=== PATIENT | female | born 1990 | race Caucasian/White ===

== ENCOUNTER 2020-03-10 16:27 | Outpatient (CLI) | payer OTHER, SELFPAY ==
[2020-03-10 17:50] LABS: HIV 1/2 Ab P24 Ag Result Negative (Negative)
[2020-03-10 17:53] LABS: Vitamin D 25 Hydroxy 62.9 ng/mL
[2020-03-10 18:06] LABS: Thyroid Stimulating Hormone Reflex 0.078 uIU/mL (0.465-4.68)
[2020-03-10 19:08] LABS: Free T4 Free Thyroxine Reflex 1.06 ng/dL (0.78-2.19)
[2020-03-10 20:19] LABS: Total Triiodothyronine (T3) 1.09 NG/ML (0.97-1.69)
== END 2020-03-10 16:28 | disposition home or self-care (01) ==
PROVIDERS: PCP Student in an Organized Health Care Education/Training Program; Visit Provider Student in an Organized Health Care Education/Training Program
DX: Z11.4 Encounter for screening for human immunodeficiency virus [HIV] (principal); Z13.29 Encounter for screening for other suspected endocrine disorder; Z13.228 Encounter for screening for other metabolic disorders
CPT/HCPCS: 36415; 82306; 84439; 84443; 84480; 86703; G0432

== ENCOUNTER → 2020-06-30 10:46 | Outpatient (CLI) | payer OTHER, SELFPAY ==
--- NOTE | ~2020-06-30 | MR_ITS ---
EXAMINATION: MR abdomen wo/w con DATE: 06/30/2020 11:54 INDICATION: Pancreatic cyst. TECHNIQUE: Magnetic resonance imaging (MRI) of the abdomen was performed without and with 18 mL Multi Jorge Luis intravenous contrast. Sequences included coronal T2-weighted FS FSE, coronal and axial FS FIEST A, axial T2-weighted FSE, coronal LAVA-flex, axial STIR FSE, axial DWI, axial dual-echo T1-weighted F SPGR, and axial LAVA. Postcontrast sequences included coronal LAVA-flex and a time course of axial LA VA. COMPARISON: CT 06/02/2019 FINDINGS: The liver, gallbladder, spleen, adrenal glands, and kidneys are normal. There is a 10 mm cyst in the pancreas at the junction of the body and tail. There is no visible connection to the main pancreatic duct. There are no dilated loops of bowel. There are no pathologically enlarged lymph nodes. There is no free intraperitoneal fluid. IMPRESSION: 1. Stable 10 mm cystic lesion of the pancreas. The differential diagnosis includes pseudocyst, intrad uctal papillary mucinous neoplasm (IPMN), mucinous cystic neoplasm (MCN), serous cystadenoma, and krystle roendocrine tumor. Abdomen MRI without and with contrast recommended in one year. 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 Stable 10 mm cystic lesion of the pancreas. The differential diagnosis inclu kalli pseudocyst, intraductal papillary mucinous neoplasm (IPMN), mucinous cystic neoplasm (MCN), serous cystadenoma, and neuroendocrine tumor. Abdomen MRI with out and with contrast recommended in one year.
[2020-06-30 11:30] LABS: Estimated Glomerular Filt Rate > 60
== END ==
PROVIDERS: PCP Student in an Organized Health Care Education/Training Program; Visit Provider Student in an Organized Health Care Education/Training Program
DX: K86.2 Cyst of pancreas (principal)
CPT/HCPCS: 74183; A9577

== ENCOUNTER 2020-11-15 11:52 | Outpatient (CLI) | payer OTHER, SELFPAY ==
[2020-11-15 12:46] LABS: Hematocrit 39.5 % (37.0-47.0); Hemoglobin 13.2 g/dL (12.0-15.0); Mean Corpuscular HGB Conc 33.4 g/dl (32-36); Mean Corpuscular Hemoglobin 29.4 pg (26-34); Mean Platelet Volume 8.9 fl (7.4-10.4); Platelet Count Result 206 k/mm3 (150-375); Red Blood Count 4.49 M/mm3 (4.2-5.4); Red Cell Distribution Width 14.3 % (11.5-14.5); White Blood Count 5.3 K/mm3 (4.5-10.0)
[2020-11-15 12:57] LABS: Alanine Aminotransferase 23 U/L (4-35); Albumin Level 4.6 g/dL (3.5-5.1); Alkaline Phosphatase 70 U/L (38-126); Anion Gap 6 mmol/L (8-16); Aspartate Amino Transferase 25 U/L (14-36); Bilirubin,Total 0.5 mg/dL (0.2-1.3); Blood Urea Nitrogen 14 mg/dL (7-17); Calcium 9.4 mg/dL (8.4-10.2); Carbon Dioxide 28 mmol/L (22-30); Chloride 104 mmol/L (98-107); Cholesterol 186 mg/dL (0-200); Estimated Glomerular Filt Rate > 60; Glucose 93 mg/dL (65-105); HDL Direct 37 mg/dL; Sodium 138 mmol/L (137-145); Triglycerides 118 mg/dL (<150)
[2020-11-15 13:09] LABS: LDL Cholesterol Direct 110 mg/dL
== END 2020-11-15 11:53 | disposition home or self-care (01) ==
PROVIDERS: PCP Student in an Organized Health Care Education/Training Program
DX: R10.9 Unspecified abdominal pain (principal); Z51.81 Encounter for therapeutic drug level monitoring; Z79.899 Other long term (current) drug therapy
CPT/HCPCS: 36415; 80053; 80061; 85027

== ENCOUNTER 2021-03-18 08:01 | Outpatient (CLI) | payer OTHER, SELFPAY ==
[2021-03-18 08:22] LABS: Basophils Absolute Auto 0.1 K/mm3 (0.0-0.1); Basophils Percent Auto 0.8 % (0.2-1.2); Eosinophils Absolute Auto 0.1 K/mm3 (0-0.3); Eosinophils Percent Auto 1.2 % (0-4.4); Hematocrit 39.8 % (37.0-47.0); Hemoglobin 13.2 g/dL (12.0-15.0); Immature Granulocyte Absolute 0.02 K/mm3 (0.00-0.031); Immature Granulocyte Percent A 0.3 % (0-0.5); Lymphocytes Absolute Auto 1.78 K/mm3 (0.9-3.2); Lymphocytes Percent Auto 30.1 % (18.3-44.2); Mean Corpuscular HGB Conc 33.2 g/dl (32-36); Mean Corpuscular Hemoglobin 29.1 pg (26-34); Mean Corpuscular Volume 87.7 fl (80-100); Mean Platelet Volume 8.9 fl (7.4-10.4); Monocytes Absolute Auto 0.5 K/mm3 (0.1-0.6); Monocytes Percent Auto 8.8 % (2.6-8.5); Neutrophils Absolute Auto 3.5 K/mm3 (1.3-6.7); Neutrophils Percent Auto 58.8 % (45.5-73.1); Platelet Count Result 240 k/mm3 (150-375); Red Blood Count 4.54 M/mm3 (4.2-5.4); Red Cell Distribution Width 13.2 % (11.5-14.5); White Blood Count 5.9 K/mm3 (4.5-10.0)
[2021-03-18 08:32] LABS: Alanine Aminotransferase 22 U/L (4-35); Albumin Level 4.6 g/dL (3.5-5.1); Alkaline Phosphatase 65 U/L (38-126); Anion Gap 10 mmol/L (8-16); Aspartate Amino Transferase 27 U/L (14-36); Bilirubin,Total 0.8 mg/dL (0.2-1.3); Blood Urea Nitrogen 12 mg/dL (7-17); Calcium 9.3 mg/dL (8.4-10.2); Carbon Dioxide 27 mmol/L (22-30); Chloride 99 mmol/L (98-107); Cholesterol 197 mg/dL (0-200); Estimated Glomerular Filt Rate > 60; Glucose 101 mg/dL (65-110); HDL Direct 42 mg/dL; Lipase 93 U/L (23-300); Potassium 3.9 mmol/L (3.4-5.0); Sodium 136 mmol/L (137-145); Triglycerides 105 mg/dL (<150)
[2021-03-18 08:59] LABS: LDL Cholesterol Direct 111 mg/dL
[2021-03-18 09:39] LABS: Vitamin D 25 Hydroxy 61.9 ng/mL
== END 2021-03-18 08:02 | disposition home or self-care (01) ==
LOC: ANHLAB 08:06
PROVIDERS: PCP Student in an Organized Health Care Education/Training Program
DX: R10.9 Unspecified abdominal pain (principal); K86.2 Cyst of pancreas
CPT/HCPCS: 36415; 80053; 80061; 82306; 83690; 85025

== ENCOUNTER 2021-07-05 11:42 | Outpatient (CLI) | payer OTHER, SELFPAY ==
--- NOTE | ~2021-07-05 | NM_ITS ---
EXAMINATION: NM hepatobiliary wo pharm DATE: 07/05/2021 15:16 INDICATION: Right upper quadrant abdominal pain. Nausea and vomiting. COMPARISON: Abdomen MRI 06/30/2020 TECHNIQUE: 4.8 mCi Tc-99m mebrofenin (Choletec) was administered intravenously. Scintigraphic images of the abdomen were obtained for one hour. Then, the patient drank 8 oz Ensure, and imaging was cont inued for 60 minutes. FINDINGS: There is normal clearance of radiotracer from the blood pool. There is homogeneous tracer u ptake by the liver. Activity progresses to the bowel and gallbladder. Gallbladder ejection fraction (GBEF) was 94%. Note that with this technique, normal GBEF >= 33%. IMPRESSION: 1. Normal hepatobiliary scintigraphy. 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
== END 2021-07-05 11:43 | disposition home or self-care (01) ==
LOC: ANHIMG 11:45
PROVIDERS: PCP Student in an Organized Health Care Education/Training Program; Visit Provider Student in an Organized Health Care Education/Training Program
DX: R10.11 Right upper quadrant pain (principal); R11.2 Nausea with vomiting, unspecified
CPT/HCPCS: 78226; A9537